=== PATIENT | male | born 1955 | race Caucasian/White ===

== ENCOUNTER → 2019-12-19 | Outpatient (CLI) | payer BC ==
--- NOTE | 2019-12-20 12:09 | CARD ---
MR#: [id number] Date of Study: 12/19/2019 Ordering Physician: CARLENE BRITO, Referring Physician: CARLENE BRITO, Tech: Elli Nelson APPROVED REPORT INDICATION Hypertension/HCVD PROCEDURE The patient underwent an Exercise Stress Test using the [employer]fa Protocol. Blood pressure, heart rate, a nd EKG were monitored. An Echocardiogram was performed by highway technician in four stages in quad fashion. At peak stress four se lected images were obtained and placed side by side with resting images for comparison. STRESS ECHO FINDINGS The resting Echocardiogram showed normal left ventricular systolic contractility with an estimated Ej ection Fraction of about 55 %. The Resting Echocardiogram showed normal augmentation of myocardial wall segments using a 16 segment model. The Stress Echocardiogram showed normal augmentation of myocardial wall segments using a 16 segment m gabriele. The Stress Echocardiogram left ventricular systolic contractility has an estimated Ejection Fraction of about 70%. 1. No significant exercise induced wall motion identified Test Type: Exercise Stress Nurse/Tech: Karis Noriega R.N. Test Indications: essential HTN Cardiac History and Allergies: htn Medications: losartan Resting ECG: SR Resting Heart Rate: 80 bpm Resting Blood Pressure: 168/88mmHg Pretest Chest Pain: No chest pain Nurse/Tech Notes lungs cta Stress Symptoms No chest pain or symptoms. POST EXERCISE Reason for Termination: Reached target heart rate Target HR: Yes Max HR: 169 bpm 108% of Maximum Predicted HR: 156 bpm Exercise duration: 6:56 min:sec, 3 Stage Exercise capacity: 10.1METs Max Blood Pressure: 200/79mmHg Blood Pressure response to exercise: Normal blood pressure response during stress. Heart Rate response to exercise: normal Chest Pain: No. Arrhythmia: No. ST Change: Yes. ST depression noted Stage 1 2:50 lucinda in II III avf, V4-6, depression deepened at end to exercise into recovery with AVR ST elevation noted, all mostly resolved during recovery period, n o chest pain INTERPRETATION Stress EKG Conclusion: 1. Subjectively negative for ischemia 2. Elective cardiographic C negative for ischemia 3. Decreased functional capacity Preliminary Notification Critical Value: No <Conclusion> 1. Low risk study Signed by : Carlene Brito, Electronically Approved : 12/20/2019 12:09:40
== END | disposition home or self-care (01) ==
LOC: ECHO 13:41
PROVIDERS: ATTEND Internal Medicine
DX: I10 Essential (primary) hypertension (principal)
CPT/HCPCS: 93017; 93350